=== PATIENT | male | born 1980 | race Two or more races ===

== ENCOUNTER 2018-01-01 13:26 | Outpatient (CLI) | payer SELFPAY ==
--- NOTE | 2018-01-01 17:41 | Diagnostic Imaging Report ---
Indications: Knee pain Technique: 4 views of the right knee Comparison: None Findings: No acute fractures. No dislocations. Joint spaces are preserved. No radiopaque foreign body. Normal mineralization. Impression: No acute process
== END 2018-01-01 15:26 | disposition home or self-care (01) ==
LOC: RAD 13:26
DX: M25.561 Pain in right knee (principal)